=== PATIENT | male | born 1945 | race Caucasian/White ===

== ENCOUNTER 2018-06-07 00:40 | Emergency (ER) | payer MEDICARE ==
[2018-06-07 01:39] LABS: #Eosinphils 0.2 thou/uL (0.0-0.7); #Monocytes 0.5 thou/uL (0.11-0.59); #Neutrophils 4.6 thou/uL (1.40-6.50); %Basophils 0.7 % (0.0-1.0); %Eosinophils 2.3 % (0.0-10.0); %Lymphocytes 27.1 % (21.0-51.0); %Monocytes 6.8 % (0.0-10.0); %Neutrophils 63.1 % (42.0-75.0); Hemoglobin 14.8 g/dL (14.0-18.0); Mean Corpuscular Hemoglobin 30.8 pg (27.0-31.0); Mean Corpuscular Volume 90.4 fL (78.0-98.0); Mean Platelet Volume 8.3 fL (7.4-10.4); Platelet Count 211 thou/uL (130-400); White Blood Cell (WBC) Count 7.2 thou/uL (4.8-10.8)
[2018-06-07 01:58] LABS: ALT (SGPT) 19 U/L (8-55); AST (SGOT) 19 U/L (5-34); Alkaline Phosphatase 60 U/L (40-150); Anion Gap 18 mmol/L (10-20); BUN (Urea Nitrogen) 14 mg/dL (8.4-25.7); Bilirubin, Total 0.4 mg/dL (0.2-1.2); Calc. Creatinine Clearance 0 mL/min (70-130); Calcium 9.6 mg/dL (7.8-10.44); Carbon Dioxide 22 mmol/L (23-31); Chloride 102 mmol/L (98-107); Estimated GFR-MDRD 65; Globulin 3.3 g/dL (2.4-3.5); Glucose 207 mg/dL (83-110); Potassium 3.8 mmol/L (3.5-5.1); Protein, Total 7.3 g/dL (5.8-8.1); Sodium 138 mmol/L (136-145)
--- NOTE | 2018-06-07 09:28 | RAD ---
PORTABLE CHEST: Date: 06/07/18 PROVIDED CLINICAL HISTORY: Syncope. FINDINGS: Comparison with 09/19/13. Cardiac and mediastinal silhouette is within normal limits. Lungs appear clear. There is no pleural f luid or pneumothorax apparent. IMPRESSION: No evidence for an acute cardiopulmonary process. POS: TPC
== END 2018-06-07 02:52 | disposition home or self-care (01) ==
LOC: MADERS 00:40
DX: S51.812A Laceration without foreign body of left forearm, initial encounter (principal); R55 Syncope and collapse; I95.1 Orthostatic hypotension; E78.5 Hyperlipidemia, unspecified; I10 Essential (primary) hypertension; Z79.899 Other long term (current) drug therapy; W19.XXXA Unspecified fall, initial encounter
CPT/HCPCS: 36415; 71045; 80053; 83880; 84484; 85025; 93005

== ENCOUNTER 2018-11-10 10:03 | Emergency (ER) | payer MEDICARE ==
[~2018-11-10 10:03] MED LIST: Sodium Chloride 0.9% 1,000 ML BAG ONE
[2018-11-10 10:37] LABS: #Basophils 0.1 thou/uL (0.0-0.2); #Eosinphils 0.3 thou/uL (0.0-0.7); #Lymphocytes 2.1 thou/uL (1.20-3.40); #Monocytes 0.6 thou/uL (0.11-0.59); #Neutrophils 6.3 thou/uL (1.40-6.50); %Basophils 0.8 % (0.0-1.0); %Eosinophils 2.8 % (0.0-10.0); %Lymphocytes 22.9 % (21.0-51.0); %Monocytes 6.2 % (0.0-10.0); %Neutrophils 67.3 % (42.0-75.0); Hemoglobin 15.9 g/dL (14.0-18.0); Mean Corpuscular HGB CONC 32.7 g/dL (32.0-36.0); Mean Corpuscular Hemoglobin 30.4 pg (27.0-31.0); Mean Corpuscular Volume 92.9 fL (78.0-98.0); Mean Platelet Volume 9.1 fL (7.4-10.4); Platelet Count 272 thou/uL (130-400); RBC Distribution Width 12.1 % (11.5-14.5); Red Blood Cell (RBC) Count 5.23 mill/uL (4.70-6.10); White Blood Cell (WBC) Count 9.3 thou/uL (4.8-10.8)
[2018-11-10 10:59] LABS: ALT (SGPT) 40 U/L (8-55); AST (SGOT) 38 U/L (5-34); Albumin 4.4 g/dL (3.4-4.8); Alkaline Phosphatase 80 U/L (40-150); Anion Gap 17 mmol/L (10-20); BUN (Urea Nitrogen) 18 mg/dL (8.4-25.7); Bilirubin, Total 1.1 mg/dL (0.2-1.2); CK (CPK) 247 U/L (30-200); Calc. Creatinine Clearance 0 mL/min (70-130); Calcium 10.2 mg/dL (7.8-10.44); Carbon Dioxide 23 mmol/L (23-31); Chloride 102 mmol/L (98-107); Estimated GFR-MDRD 66; Globulin 3.3 g/dL (2.4-3.5); Glucose 168 mg/dL (83-110); Potassium 3.7 mmol/L (3.5-5.1); Protein, Total 7.7 g/dL (5.8-8.1); Sodium 138 mmol/L (136-145)
--- NOTE | 2018-11-10 11:11 | RAD ---
PORTABLE CHEST 1 VIEW: Date: 11/10/18 Time: 1031 hours HISTORY: Dyspnea. FINDINGS: Comparison made with exam of 06/07/18. The heart size is normal. The lungs are well expanded without focal areas of consolidation, pneumotho races, or pleural effusions. There are degenerative changes in the acromioclavicular joints. IMPRESSION: No acute process. POS: OFF
== END 2018-11-10 12:30 | disposition home or self-care (01) ==
LOC: MADERS 10:03
DX: R06.02 Shortness of breath (principal); E86.0 Dehydration; R55 Syncope and collapse; E78.5 Hyperlipidemia, unspecified; I10 Essential (primary) hypertension; Z79.899 Other long term (current) drug therapy; Z79.82 Long term (current) use of aspirin
CPT/HCPCS: 71045; 80053; 82550; 83880; 84484; 85025; 85379; 93005; 94760; 96360; 96361; J7050

== ENCOUNTER 2019-09-10 18:32 | Emergency (ER) | payer MEDICARE ==
[2019-09-10 19:04] LABS: #Basophils 0.1 thou/uL (0.0-0.2); #Eosinphils 0.1 thou/uL (0.0-0.7); #Monocytes 0.5 thou/uL (0.11-0.59); #Neutrophils 5.2 thou/uL (1.40-6.50); %Basophils 0.7 % (0.0-1.0); %Eosinophils 1.1 % (0.0-10.0); %Lymphocytes 25.4 % (21.0-51.0); %Monocytes 6.6 % (0.0-10.0); %Neutrophils 66.2 % (42.0-75.0); Hemoglobin 15.2 g/dL (14.0-18.0); Mean Corpuscular HGB CONC 32.1 g/dL (32.0-36.0); Mean Corpuscular Hemoglobin 29.9 pg (27.0-31.0); Mean Corpuscular Volume 93.1 fL (78.0-98.0); Mean Platelet Volume 10.1 fL (7.4-10.4); Platelet Count 247 thou/uL (130-400); RBC Distribution Width 11.6 % (11.5-14.5); Red Blood Cell (RBC) Count 5.09 mill/uL (4.70-6.10); White Blood Cell (WBC) Count 7.9 thou/uL (4.8-10.8)
--- NOTE | 2019-09-10 19:19 | CT ---
Exam: Abdomen CT without contrast Pelvic CT without contrast HISTORY: Abdominal pain COMPARISON: None FINDINGS: Abdomen CT: Lung bases:Clear Heart size: Limited evaluation Aorta: Atherosclerosis. No periaortic fat stranding. Solid organs: Limited evaluation due to the lack of IV contrast. Grossly no solid organ abnormality Lymph nodes: No gastrohepatic, retrocrural or periportal lymphadenopathy Gallbladder: Multiple gallstones are noted. Mild gallbladder prominence. Consider right upper quadran t ultrasound Mesentery: No mass, lymphadenopathy, free air or free fluid Kidneys: Bilaterally, no hydronephrosis, nephrolithiasis or perinephric fat stranding. Bilateral uret ers have a normal caliber. No hydroureter, periureteral fat stranding or ureterolithiasis. 3 cm cyst in the upper pole of the left kidney. Alimentary canal: Limited evaluation due to the lack of oral contrast. No evidence of small bowel obs truction. Ileocecal junction is unremarkable. Normal caliber appendix. Scattered fecal material in a nondistended, nondilated colon. Diverticulosis. No diverticulitis. CT PELVIS: No mass, adenopathy, free air or free fluid. Urinary bladder: Unremarkable. Osseous structures: No lytic or blastic lesions IMPRESSION: 1. CT evidence of cholelithiasis without evidence of cholecystitis. Consider gallbladder ultrasound. 2. Bilaterally no obstructive uropathy.
[2019-09-10 19:24] LABS: ALT (SGPT) 19 U/L (8-55); AST (SGOT) 19 U/L (5-34); Albumin 4.4 g/dL (3.4-4.8); Alkaline Phosphatase 64 U/L (40-110); Anion Gap 17 mmol/L (10-20); BUN (Urea Nitrogen) 15 mg/dL (8.4-25.7); Bilirubin, Total 0.6 mg/dL (0.2-1.2); CK (CPK) 55 U/L (30-200); Calc. Creatinine Clearance 0 mL/min (70-130); Carbon Dioxide 26 mmol/L (23-31); Chloride 101 mmol/L (98-107); Estimated GFR-MDRD 76; Globulin 3.3 g/dL (2.4-3.5); Glucose 111 mg/dL (83-110); Lipase 14 U/L (8-78); Potassium 3.9 mmol/L (3.5-5.1); Protein, Total 7.7 g/dL (5.8-8.1); Sodium 140 mmol/L (136-145)
== END 2019-09-10 19:50 | disposition home or self-care (01) ==
LOC: MADERS 18:32
DX: I16.0 Hypertensive urgency (principal); I10 Essential (primary) hypertension; K80.20 Calculus of gallbladder without cholecystitis without obstruction; E78.5 Hyperlipidemia, unspecified; E78.00 Pure hypercholesterolemia, unspecified
CPT/HCPCS: 74176; 80053; 82550; 83690; 84484; 85025; 93005

== ENCOUNTER 2019-09-14 10:33 | Emergency (ER) | payer MEDICARE ==
[2019-09-14] MEDS ORDERED: Simethicone Chewable 80 MG TAB ONE (11:10)
[2019-09-14] MEDS ORDERED: Dicyclomine 10 MG CAP ONE (11:10)
[2019-09-14 11:21] LABS: #Basophils 0.1 thou/uL (0.0-0.2); #Lymphocytes 1.2 thou/uL (1.20-3.40); #Monocytes 0.4 thou/uL (0.11-0.59); #Neutrophils 7.7 thou/uL (1.40-6.50); %Basophils 0.6 % (0.0-1.0); %Eosinophils 0.4 % (0.0-10.0); %Lymphocytes 12.3 % (21.0-51.0); %Monocytes 3.8 % (0.0-10.0); %Neutrophils 82.8 % (42.0-75.0); Hemoglobin 16.3 g/dL (14.0-18.0); Mean Corpuscular HGB CONC 31.4 g/dL (32.0-36.0); Mean Corpuscular Hemoglobin 29.2 pg (27.0-31.0); Mean Corpuscular Volume 93.1 fL (78.0-98.0); Mean Platelet Volume 10.1 fL (7.4-10.4); Platelet Count 225 thou/uL (130-400); RBC Distribution Width 11.4 % (11.5-14.5); Red Blood Cell (RBC) Count 5.58 mill/uL (4.70-6.10); White Blood Cell (WBC) Count 9.3 thou/uL (4.8-10.8)
[2019-09-14 11:35] LABS: ALT (SGPT) 25 U/L (8-55); AST (SGOT) 23 U/L (5-34); Albumin 4.7 g/dL (3.4-4.8); Alkaline Phosphatase 69 U/L (40-110); Anion Gap 19 mmol/L (10-20); BUN (Urea Nitrogen) 20 mg/dL (8.4-25.7); Bilirubin, Total 1.2 mg/dL (0.2-1.2); Calc. Creatinine Clearance 0 mL/min (70-130); Calcium 10.7 mg/dL (7.8-10.44); Carbon Dioxide 22 mmol/L (23-31); Chloride 100 mmol/L (98-107); Estimated GFR-MDRD 70; Globulin 3.4 g/dL (2.4-3.5); Glucose 129 mg/dL (83-110); Lipase 8 U/L (8-78); Protein, Total 8.1 g/dL (5.8-8.1); Sodium 137 mmol/L (136-145)
--- NOTE | 2019-09-14 11:58 | ULT ---
US Gallbladder RUQ History: Right upper quadrant pain Comparison: CT examination September 10, 2019 Findings: Real-time grayscale and color evaluation of the right upper quadrant of the abdomen was per formed. Visualized portion of the aorta and IVC are unremarkable. Pancreas is unremarkable. Hepatic echotexture is normal. Common bile duct is normal measuring 2 mm. Diffuse cholelithiasis with poor visualization of the wall. Sonographic Chang's sign is positive. Right kidney measures 8.4 x 3.7 x 4.6 cm without mass, hydronephrosis, or abnormal calcifications. Impression: Diffuse cholelithiasis with positive Chang's sign suggests acute cholecystitis in the co rrect clinical setting.
[2019-09-14] MEDS ORDERED: Ciprofloxacin 500 MG TAB ONE (12:20)
[2019-09-14] MEDS ORDERED: metroNIDAZOLE 250 MG TAB ONE (12:20)
[2019-09-14 15:21] LABS: Bilirubin, Direct 0.5 mg/dL (0.1-0.3)
== END 2019-09-14 12:23 | disposition home or self-care (01) ==
LOC: MADERS 10:33
DX: K80.70 Calculus of gallbladder and bile duct without cholecystitis without obstruction (principal); E78.5 Hyperlipidemia, unspecified; E78.00 Pure hypercholesterolemia, unspecified; I10 Essential (primary) hypertension; Z79.899 Other long term (current) drug therapy; Z79.82 Long term (current) use of aspirin
CPT/HCPCS: 36415; 76705; 80053; 82248; 83690; 85025

== ENCOUNTER 2020-04-06 08:54 | Emergency (ER) | payer MEDICARE ==
[2020-04-06 09:52] LABS: #Basophils 0.1 thou/uL (0.0-0.2); #Eosinphils 0.1 thou/uL (0.0-0.7); #Monocytes 0.4 thou/uL (0.11-0.59); #Neutrophils 5.6 thou/uL (1.40-6.50); %Basophils 0.9 % (0.0-1.0); %Eosinophils 1.6 % (0.0-10.0); %Lymphocytes 13.3 % (21.0-51.0); %Monocytes 6.1 % (0.0-10.0); Hemoglobin 15.6 g/dL (14.0-18.0); Mean Corpuscular HGB CONC 32.2 g/dL (32.0-36.0); Mean Corpuscular Hemoglobin 30.4 pg (27.0-31.0); Mean Corpuscular Volume 94.6 fL (78.0-98.0); Platelet Count 227 thou/uL (130-400); RBC Distribution Width 11.1 % (11.5-14.5); Red Blood Cell (RBC) Count 5.12 mill/uL (4.70-6.10); White Blood Cell (WBC) Count 7.2 thou/uL (4.8-10.8)
[2020-04-06 10:03] LABS: ALT (SGPT) 22 U/L (8-55); AST (SGOT) 22 U/L (5-34); Albumin 4.6 g/dL (3.4-4.8); Alkaline Phosphatase 64 U/L (40-110); Anion Gap 17 mmol/L (10-20); BUN (Urea Nitrogen) 15 mg/dL (8.4-25.7); Bilirubin, Total 0.8 mg/dL (0.2-1.2); Calc. Creatinine Clearance 0 mL/min (70-130); Calcium 10.2 mg/dL (7.8-10.44); Carbon Dioxide 25 mmol/L (23-31); Chloride 100 mmol/L (98-107); Estimated GFR-MDRD 85; Globulin 3.5 g/dL (2.4-3.5); Glucose 123 mg/dL (83-110); Potassium 4.1 mmol/L (3.5-5.1); Protein, Total 8.1 g/dL (5.8-8.1); Sodium 138 mmol/L (136-145)
[2020-04-06] MEDS ORDERED: Sodium Chloride 0.9% 1,000 ML ONE (12:20)
== END 2020-04-06 10:25 | disposition home or self-care (01) ==
LOC: MADERS 08:54
DX: T67.5XXA Heat exhaustion, unspecified, initial encounter (principal); R42 Dizziness and giddiness; I10 Essential (primary) hypertension; E78.00 Pure hypercholesterolemia, unspecified; E78.5 Hyperlipidemia, unspecified; Z79.82 Long term (current) use of aspirin; Z79.899 Other long term (current) drug therapy
CPT/HCPCS: 80053; 84484; 85025; 93005; 96360; J7050

== ENCOUNTER 2021-10-19 00:49 | Emergency (ER) | payer MEDICARE ==
[2021-10-19 01:24] LABS: #Basophils 0.1 thou/uL (0.0-0.2); #Eosinphils 0.2 thou/uL (0.0-0.7); #Lymphocytes 2.4 thou/uL (1.20-3.40); #Monocytes 0.6 thou/uL (0.11-0.59); #Neutrophils 4.8 thou/uL (1.40-6.50); %Basophils 0.7 % (0.0-1.0); %Eosinophils 2.1 % (0.0-10.0); %Lymphocytes 29.8 % (21.0-51.0); %Monocytes 7.7 % (0.0-10.0); %Neutrophils 59.7 % (42.0-75.0); Hemoglobin 15.9 g/dL (14.0-18.0); Mean Corpuscular HGB CONC 33.2 g/dL (32.0-36.0); Mean Corpuscular Hemoglobin 30.9 pg (27.0-31.0); Mean Corpuscular Volume 93.1 fL (78.0-98.0); Mean Platelet Volume 9.7 fL (7.4-10.4); Platelet Count 224 thou/uL (130-400); RBC Distribution Width 11.3 % (11.5-14.5); Red Blood Cell (RBC) Count 5.14 mill/uL (4.70-6.10); White Blood Cell (WBC) Count 8.1 thou/uL (4.8-10.8)
[2021-10-19 01:41] LABS: ALT (SGPT) 23 U/L (8-55); AST (SGOT) 22 U/L (5-34); Albumin 4.2 g/dL (3.4-4.8); Alkaline Phosphatase 59 U/L (40-110); Anion Gap 13 mmol/L (10-20); BUN (Urea Nitrogen) 20 mg/dL (8.4-25.7); Bilirubin, Total 0.4 mg/dL (0.2-1.2); Calc. Creatinine Clearance 0 mL/min (70-130); Calcium 9.7 mg/dL (7.8-10.44); Carbon Dioxide 28 mmol/L (23-31); Chloride 101 mmol/L (98-107); Globulin 3.2 g/dL (2.4-3.5); Glucose 168 mg/dL (83-110); Potassium 3.8 mmol/L (3.5-5.1); Protein, Total 7.4 g/dL (5.8-8.1); Sodium 138 mmol/L (136-145)
[2021-10-19] MEDS ORDERED: Boostrix 0.5 ML (Tdap) VIAL ONE (01:54)
[2021-10-19 02:07] LABS: SARS-CoV-2 NAA Rapid Test Not Detected (NotDetected)
== END 2021-10-19 04:08 | disposition short-term general hospital (02) ==
LOC: MADERS 00:49
DX: S06.0X1A Concussion with loss of consciousness of 30 minutes or less, initial encounter (principal); S51.011A Laceration without foreign body of right elbow, initial encounter; S00.03XA Contusion of scalp, initial encounter; W19.XXXA Unspecified fall, initial encounter; Z23 Encounter for immunization; Z20.822 Contact with and (suspected) exposure to COVID-19; I10 Essential (primary) hypertension; E78.5 Hyperlipidemia, unspecified; E78.00 Pure hypercholesterolemia, unspecified; Z79.82 Long term (current) use of aspirin
CPT/HCPCS: 70450; 71045; 72125; 83735; 84484; 90715; 93005; 94760; U0002; 12001; 80053; 84443; 85025; 90471

== ENCOUNTER 2022-06-25 09:50 | Emergency (ER) | payer MEDICARE ==
[2022-06-25] MEDS ORDERED: Lidocaine 1% (PF) 30 ML VIAL ONE (10:07)
[2022-06-25] MEDS ORDERED: Bacitracin 1 PK ONE (10:49)
== END 2022-06-25 10:56 | disposition home or self-care (01) ==
LOC: MADERS 09:50
DX: S61.411A Laceration without foreign body of right hand, initial encounter (principal); E78.5 Hyperlipidemia, unspecified; I10 Essential (primary) hypertension; W26.8XXA Contact with other sharp object(s), not elsewhere classified, initial encounter
CPT/HCPCS: 12002; J2001

== ENCOUNTER 2022-07-01 09:41 | Emergency (ER) | payer MEDICARE | END 2022-07-01 10:18 | disposition home or self-care (01) | LOC: MADERS 09:41 | DX: S61.411D Laceration without foreign body of right hand, subsequent encounter (principal); I10 Essential (primary) hypertension; E78.00 Pure hypercholesterolemia, unspecified; W26.8XXD Contact with other sharp object(s), not elsewhere classified, subsequent encounter; Z79.82 Long term (current) use of aspirin; Z79.899 Other long term (current) drug therapy ==